=== PATIENT | male | born 1955 | race Caucasian/White ===

== ENCOUNTER 2016-05-08 13:52 | Inpatient (IN) | payer MEDICAID ==
[2016-05-08 14:40] LABS: BASO # 0.1 K/uL (0.0-0.2); BASO % 1.4 % (0.0-2.0); EOS # 0.2 K/uL (0.0-0.7); EOS % 3.4 % (0.0-4.0); HEMATOCRIT 32.9 % (35.0-51.0); LYMPH # 1.4 K/uL (1.0-4.3); LYMPH % 22.9 % (20.0-40.0); MEAN CELL VOLUME 93.6 fL (80.0-94.0); MEAN CORPUSCULAR HEMOGLOBIN 31.4 pg (27.0-31.0); MEAN CORPUSCULAR HGB CONC 33.6 g/dL (33.0-37.0); MEAN PLATELET VOLUME 7.2 fL (7.2-11.7); MONO # 0.5 K/uL (0.0-0.8); MONO % 8.7 % (0.0-10.0); RED CELL DISTRIBUTION WIDTH 13.3 % (11.5-14.5); WHITE BLOOD COUNT 6.1 K/uL (4.8-10.8)
[2016-05-08 14:52] LABS: RBC URINE < 1 /hpf (0-3); URINE BILIRUBIN NEGATIVE (NEGATIVE); URINE BLOOD NEGATIVE (NEGATIVE); URINE COLOR Straw (YELLOW); URINE GLUCOSE (UA) NORMAL (Normal); URINE KETONE NEGATIVE (NEGATIVE); URINE LEUKOCYTE ESTERASE NEG Leu/uL (Negative); URINE PROTEIN NEGATIVE (NEGATIVE); URINE UROBILINOGEN NORMAL mg/dL (0.2-1.0); WBC URINE < 1 /hpf (0-5)
[2016-05-08 15:02] LABS: CHLORIDE 97 mmol/L (98-107); SODIUM 138 mmol/L (132-148)
[2016-05-08 15:04] LABS: AST/SGOT 32 U/L (17-59); BILIRUBIN,TOTAL 0.5 mg/dL (0.2-1.3); CARBON DIOXIDE 28 mmol/L (22-30); GFR AFRICAN-AMERICAN > 60
[2016-05-08 15:05] LABS: ALB/GLOB RATIO 0.9 (1.0-2.1); ALKALINE PHOSPHATASE 111 U/L (38-126); ALT/SGPT 29 U/L (21-72); BLOOD UREA NITROGEN 22 mg/dL (9-20); CALCIUM 8.6 mg/dl (8.6-10.4); GLUCOSE,RANDOM 100 mg/dL (75-110); TOTAL PROTEIN 7.6 g/dL (6.3-8.3)
[2016-05-08 15:06] LABS: ALCOHOL SERUM < 10 mg/dl (0-10)
--- NOTE | 2016-05-08 15:22 | C.PDOC ---
History Of Present Illness 61 y/o male presents to the ED requesting heroin and cocaine detox, last used yesterday at 1500. Pt was prescreened. Pt has no complaints at this time. Time Seen by Provider: 05/08/16 14:06 Chief Complaint (Nursing): Substance Abuse History Per: Patient History/Exam Limitations: no limitations Suicide/Self Injury Attempted (Context): None Modifying Factor(s): Narcotics, Cocaine Severity: Mild Involuntary Hold By: None Recent travel outside of the [place]: No Past Medical History Reviewed: Historical Data, Nursing Documentation, Vital Signs Vital Signs: Last Vital Signs Temp 97.8 F 05/08/16 13:55 Pulse 83 05/08/16 13:55 Resp 20 05/08/16 13:55 BP 167/95 H 05/08/16 13:55 Pulse Ox 95 05/08/16 15:33 - Medical History PMH: Bronchitis, COPD - [facility] DETOXIFICATION SERVICES FOR SUBSTANCE ABUSE TREATMENT (07/06/15) GROUP PSYCHOTHERAPY (07/06/15) Family History: States: Unknown Family Hx - Social History Hx Alcohol Use: Yes Hx Substance Use: Yes (cocaine/heroin) - Immunization History Hx Tetanus Toxoid Vaccination: Yes Hx Influenza Vaccination: No Hx Pneumococcal Vaccination: No Review Of Systems Except As Marked, All Systems Reviewed And Found Negative. Constitutional: Negative for: Fever Cardiovascular: Negative for: Chest Pain Respiratory: Negative for: Shortness of Breath Gastrointestinal: Negative for: Vomiting Psych: Negative for: Suicidal ideation Physical Exam - Physical Exam Appears: Non-toxic, No Acute Distress Skin: Warm, Dry, No Rash Head: Atraumatic, Normacephalic Nose: Normal Neck: Normal ROM, Supple Chest: Symmetrical Cardiovascular: Rhythm Regular Respiratory: Normal Breath Sounds, No Rales, No Rhonchi, No Wheezing Gastrointestinal/Abdominal: Soft, No Tenderness Extremity: Bilateral: Atraumatic Neurological/Psych: Oriented x3 ED Course And Treatment - Laboratory Results Result Diagrams: 05/08/16 14:36 05/08/16 14:36 O2 Sat by Pulse Oximetry: 95 (on room air) Pulse Ox Interpretation: Normal Progress Note: Plan: Blood work, UA, UDS ordered and reviewed. 3:35pm- Patient medically cleared. Pending crisis. 4:35pm- Patient accepted for detox admission by Dr. Tatum. Disposition - Disposition Disposition Time: 16:35 Condition: STABLE - Clinical Impression Clinical Impression: Cocaine dependence, Opiate dependence - Scribe Statement The provider has reviewed the documentation as recorded by the Thang Escobar Provider Attestation: All medical record entries made by the Thang were at my direction and personally dictated by me. I have reviewed the chart and agree that the record accurately reflects my personal performance of the history, physical exam, medical decision making, and the department course for this patient. I have also personally directed, reviewed, and agree with the discharge instructions and disposition.
[2016-05-08] MEDS ORDERED: Albuterol HFA 90 mcg/actuation (8 g) INH PRN (17:42)
[2016-05-08] MEDS: Fluticasone-Salmeterol 250-50mcg Diskus INH SCH (21:43)
[2016-05-09] MEDS ORDERED: Buprenorphine Hydrochloride 2 mg SL ONE ×3 (01:20→10:00)
[2016-05-09] MEDS: Fluticasone-Salmeterol 250-50mcg Diskus INH SCH ×2 (08:30→20:25)
--- NOTE | 2016-05-09 11:53 | PCM.PSYCH ---
Initial Psychiatric Evaluation - Initial Psychiatric Evaluation Type of Admission: Voluntary Legal Status: Capacity Chief Complaint (in patient's own words): I came to get help in heroin detox History of Present Illness and Precipitating Events: Patient is a 61 y/o HM who is currently living alone on SSI came to the ED to get help in heroin detox. Patient denies any history of any inpatient psychiatric hospitalization and denies any history of follow-up with any psychiatrist. He reports history of 2 detoxes in the past. Last detox was at [facility] last year. As per the patient soon after his detox, last year, he relapsed on heroin and started abusing 4-5 bags on a daily basis. Patient reports that day before yesterday he injected almost 5 bags of heroin along with some cocaine. Yesterday he started experiencing withdrawal symptoms and so came to the hospital to get help. Pt reports withdrawal symptoms from heroin including sweating, headaches, anxiety, nausea, abdominal cramps and joint pains. He reports irritable mood but denies any feelings of hopelessness or helplessness, denies any suicidal ideation or homicidal ideation. Patient denies any psychotic or manic symptoms. Denies any other substance abuse. Past medical history COPD Current Medications: Active Medications Generic Name Dose Route Start Last Admin Trade Name Freq PRN Reason Stop Dose Admin Albuterol 1 puff 05/08/16 17:42 Ventolin Hfa 90 Mcg/Actuation (8 G) INH RQ4 PRN Shortness of Breath Clonidine HCl 0.1 mg 05/08/16 17:14 05/09/16 10:22 Catapres PO 0.1 mg Q8 PRN Administration opiate withdrawal Dicyclomine HCl 10 mg 05/08/16 17:50 Bentyl PO Q6 PRN abdominal spasm Hydroxyzine HCl 25 mg 05/08/16 17:04 05/08/16 23:39 Atarax PO 25 mg Q6 PRN Administration Anxiety Ibuprofen 600 mg 05/08/16 17:50 Motrin Tab PO Q8 PRN Pain, moderate (4-7) Fluticasone/Salmeterol 1 puff 05/08/16 20:00 05/09/16 08:30 Advair Diskus 250/50 INH 1 inhaler RQ12 GRAHAM Administration Trazodone HCl 50 mg 05/08/16 22:00 05/08/16 21:43 Desyrel PO 50 mg HS PRN Administration Insomnia Past Psychiatric History - Past Psychiatric History Previous Treatment History: None Pertinent Medical Hx (Current Medical&Sleep Prob, Allergies): Allergies Allergy/AdvReac Type Severity Reaction Status Date / Time No Known Allergies Allergy Verified 05/08/16 13:54 Albuterol HFA [Ventolin HFA 90 mcg/actuation (8 g)] 2 puff IH [id number] 07/06/15 Budesonide/Formoterol Fumarate [Symbicort] 1 aer IH DAILY 07/06/15 Review of Systems - Review of Systems All systems: reviewed and no additional remarkable complaints except - Psychiatric Psychiatric: Anxiety, Irritability. absent: Auditory Hallucinations, Suicidal Ideation, Visual Hallucinations Mental Status Examination - Personal Presentation Personal Presentation: Looks stated age - Affect Affect: Constricted - Motor Activity Motor Activity: Calm - Reliability in Providing Information Reliability in Providing Information: Good - Speech Speech: Organized - Mood Mood: Anxious - Formal Thought Process Formal Thought Process: No Impairment - Obsessions/Compulsions Obsessions: No Compulsions: No - Cognitive Functions Orientation: Person, Place, Situation, Time Sensorium: Alert Attention/Concentration: Attentive Abstract Thinking: Agar Estimate of Intelligence: Below average Judgement: Imparied, as evidence by: Poor judgement, Intact, as evidence by: Insight regarding need for hospitalization - Risk Risk: Withdrawal, Diminished functioning - Strength & Assets Inventory Strength & Assets Inventory: Cooperative DSM 5 DX - DSM 5 DSM 5 Diagnosis: Opioid use disorder severe Opioid withdrawal Cocaine use disorder severe - Recommended/Plan of Treatment Treatment Recommendations and Plan of Treatment: Opioid use disorder severe CBT Psychoeducation Supportive therapy, individual therapy Use AK for abstinence Opioid withdrawal CBT Psychoeducation Supportive therapy, individual therapy Clonidine when necessary Start Subutex Cocaine use disorder severe CBT& Psychoeducation Use AK for abstinence COPD Continue prescribed medications Monitor for signs and symptoms - Smoking Cessation Smoking Cessation Initiated: No
[2016-05-10] MEDS: Fluticasone-Salmeterol 250-50mcg Diskus INH SCH ×2 (08:46→20:32)
[2016-05-10] MEDS ORDERED: Buprenorphine Hydrochloride 2 mg SL ONE (10:00)
--- NOTE | 2016-05-10 11:56 | PCM.PYCHPN ---
Psychiatric Progress Note - Psychiatric Progress Note Patient seen today, length of contact: 15 minutes Patient Chief Complaint: I'm feeling much better with the treatment Problems Identified/Issues Discussed: Patient seen. Chart reviewed. Case discussed with the staff. Issues related to illness and treatment were discussed with the patient. Reported compliant with treatment with no adverse affects. Tolerating treatment very well. Reported feeling much better with the treatment. Patient doesn't want to go anywhere for follow-up after discharge from the hospital. At the time of evaluation, patient was awake alert oriented 3, had no delusions, no auditory or visual hallucinations, no suicidal ideations or homicidal ideations. Medical Problems: COPD Diagnostic Results: Reviewed DSM 5 Symptoms Update: Improvement with treatment Medication Change: No Medical Record Reviewed: Yes Mental Status Examination - Cognitive Function Orientation: Person, Place, Situation, Time Memory: Intact Attention: WNL Concentration: WNL Association: WNL Fund of Knowledge: [facility] Decription of patient's judgement and insights: Fair - Mood Mood: Depressed (Less than before) - Affect Affect: Depressed - Speech Speech: Appropriate - Formal Thought Process Formal Thought Process: No Impairment Psychotic Thoughts and Behaviors: None - Suicidal Ideation Suicidal Ideation: No - Homicidal Ideation Homicidal Ideation: No Goal/Treatment Plan - Goal/Treatment Plan Need for Continued Stay: Remain at risks for inpatient hospitalization, Discharge may exacerbated symptoms, Severe functional impairment Progress Toward Problem(s) and Goals/Treatment Plan: Improving with treatment Patient education Supportive therapy Continue treatment as before Patient doesn't want to go to any rehabilitation or any program for follow-up after discharge from the hospital. Estimated Date of D/C: 05/13/16 - Smoking Cessation Smoking Cessation Initiated: No
[2016-05-11] MEDS: Fluticasone-Salmeterol 250-50mcg Diskus INH SCH ×2 (08:28→20:39)
[2016-05-11] MEDS ORDERED: Buprenorphine Hydrochloride 2 mg SL ONE (10:00)
--- NOTE | 2016-05-11 16:07 | PCM.PYCHPN ---
Psychiatric Progress Note - Psychiatric Progress Note Patient seen today, length of contact: 15 minutes Patient Chief Complaint: I'm feeling much better with the treatment Problems Identified/Issues Discussed: Patient seen. Chart reviewed. Case discussed with the staff. Issues related to illness and treatment were discussed with the patient. Reported compliant with treatment with no adverse affects. Tolerating treatment very well. Reported feeling much better with the treatment. Patient doesn't want to go anywhere for follow-up after discharge from the hospital. His blood pressure was still on the higher side. We will start Norvasc 5 mg daily. At the time of evaluation, patient was awake alert oriented 3, had no delusions, no auditory or visual hallucinations, no suicidal ideations or homicidal ideations. Medical Problems: COPD Hypertension Diagnostic Results: Reviewed DSM 5 Symptoms Update: Improving with treatment Medication Change: Yes (Started Norvasc 5 mg daily) Medical Record Reviewed: Yes Mental Status Examination - Cognitive Function Orientation: Person, Place, Situation, Time Memory: Intact Attention: WNL Concentration: WNL Association: WNL Fund of Knowledge: [facility] Decription of patient's judgement and insights: Fair - Mood Mood: Depressed (Less than before) - Affect Affect: Depressed - Speech Speech: Appropriate - Formal Thought Process Formal Thought Process: No Impairment Psychotic Thoughts and Behaviors: None - Suicidal Ideation Suicidal Ideation: No - Homicidal Ideation Homicidal Ideation: No Goal/Treatment Plan - Goal/Treatment Plan Need for Continued Stay: Remain at risks for inpatient hospitalization, Discharge may exacerbated symptoms, Severe functional impairment Progress Toward Problem(s) and Goals/Treatment Plan: Improving with treatment Patient education Supportive therapy Start Norvasc 5 mg daily Continue rest of the treatment as before Patient doesn't want to go to any rehabilitation or any program for follow-up after discharge from the hospital. Estimated Date of D/C: 05/13/16 - Smoking Cessation Smoking Cessation Initiated: No
[2016-05-11 16:51] VITALS: RESP 18
[2016-05-11 20:41] VITALS: O2SAT 96
[2016-05-12 06:21] VITALS: BP 143/82; PULSE 59; TEMP 98
[2016-05-12] MEDS: Fluticasone-Salmeterol 250-50mcg Diskus INH SCH (09:57)
--- NOTE | 2016-05-12 11:44 | PCM.PYCHDC ---
Mental Status Examination - Mental Status Examination Orientation: Person, Place, Situation, Time Memory: Intact Mood: Neutral Affect: Other (Appropriate) Speech: Appropriate Attention: WNL Concentration: WNL Association: WNL Fund of Knowledge: WNL Formal Thought Process: No Impairment Description of patient's judgement and insight: Fair Psychotic Thoughts and Behaviors: None Suicidal Ideation: No Current Homicidal Ideation?: No Discharge Summary - Discharge Note Reason for Hospitalization: Opiate use disorder Psychiatric History (includes Medical, Family, Personal Hx): Opiate use, hypertension Laboratory Data: Reviewed Consultations:: List each consultation separately and include: 1. Reason for request. 2. Findings. 3. Follow-up Summary of Hospital Course include:: 1. Description of specific treatment plan utilized for patients during their course of treatmen. 2. Summarize the time- course for resolution of acute symptoms and/or regressed behaviors. 3. Describe issues identified and worked on during hospitalization. 4. Describe medication utilized. 5. Describe medical problems identified and treated. 6. Reassessment of suicide risk Summary of Hospital Course: Patient is a 61 y/o HM who is currently living alone on SSI came to the ED to get help in heroin detox. Patient denies any history of any inpatient psychiatric hospitalization and denies any history of follow-up with any psychiatrist. He reports history of 2 detoxes in the past. Last detox was at [facility] last year. As per the patient soon after his detox, last year, he relapsed on heroin and started abusing 4-5 bags on a daily basis. Patient reports that day before yesterday he injected almost 5 bags of heroin along with some cocaine. Yesterday he started experiencing withdrawal symptoms and so came to the hospital to get help. Pt reports withdrawal symptoms from heroin including sweating, headaches, anxiety, nausea, abdominal cramps and joint pains. He reports irritable mood but denies any feelings of hopelessness or helplessness, denies any suicidal ideation or homicidal ideation. Patient denies any psychotic or manic symptoms. Denies any other substance abuse. During his stay in the hospital, patient was started on Subutex for opiate withdrawal symptoms and other when necessary medications. His blood pressure was on her side. Patient reported he had hypertension but was not taking medication for last 1 year. Patient was also started on Norvasc for hypertension. With the above treatment patient started feeling better, no withdrawal symptoms, no adverse affects. Today patient was stable and was ready for discharge. At the time of evaluation and discharge, patient was awake alert oriented 3, had no delusions, no auditory or visual hallucinations, no suicidal ideations or homicidal ideations. - Final Diagnosis (DSM 5) Condition upon Discharge: STABLE Disposition: HOME/ ROUTINE Follow-up Treatment Plan: Patient doesn't want to go to any rehabilitation or any program for follow-up after discharge from the hospital. Prescriptions/Medication Reconciliation: Gabapentin [Neurontin] 300 mg PO BID #60 cap amLODIPine [Norvasc] 5 mg PO DAILY #30 tab - Smoking Cessation Smoking Cessation Medication prescribed: No Reason for not providing: Patient doesn't smoke cigarettes - Antipsychotic Medications Pt discharged on 2 or more routine antipsychotic medications: No
== END 2016-05-12 10:47 | disposition home or self-care (01) | DRG 744 ==
LOC: C.ER 13:52 → C.7D 16:34
PROVIDERS: ADMIT Psychiatry & Neurology Psychiatry; ATTEND Psychiatry & Neurology Psychiatry
PROC: HZ2ZZZZ Detoxification Services for Substance Abuse Treatment (ICD-10-PCS; principal; 2016-05-08)
PROC: GZ56ZZZ Individual Psychotherapy, Supportive (ICD-10-PCS; 2016-05-08)
DX: F11.23 Opioid dependence with withdrawal (principal); J44.9 Chronic obstructive pulmonary disease, unspecified; F14.20 Cocaine dependence, uncomplicated; I10 Essential (primary) hypertension; F41.9 Anxiety disorder, unspecified

== ENCOUNTER 2017-09-01 08:25 | Day surgery (SDC) | payer OTHER ==
[2017-09-01 09:26] VITALS: BP 152/84; PULSE 84; RESP 20; TEMP 97.8; O2SAT 97
--- NOTE | 2017-09-01 09:45 | CP.PCM.PCO ---
Addendum Addendum: 09/01/17 09:43 Pt is a 62 yo male scheduled for elective inguinal hernia surgery. As per the patient, he was unable to sleep and took a "hit/ bump of cocaine" around 1am on the day of surgery. I spoke to him about the increased risk of major adverse cardiac events that occur. At this time, the case will be canceled and patient was advised to reschedule. Case d/w dr. bourgeois.
[2017-09-01] MEDS ORDERED: Midazolam 2 MG/2 ML VIAL ONE (14:21)
[2017-09-01] MEDS ORDERED: Propofol 10 mg/ml Inj (20 ML) ONE (14:22)
== END 2017-09-01 09:38 | disposition home or self-care (01) ==
LOC: C.SDS 08:25
PROVIDERS: ATTEND Specialist
DX: K40.90 Unilateral inguinal hernia, without obstruction or gangrene, not specified as recurrent (principal); Z53.09 Procedure and treatment not carried out because of other contraindication